=== PATIENT | female | born 2000 | race Caucasian/White ===

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

== ENCOUNTER 2019-01-11 00:20 | Emergency (ER) | payer OTHER ==
[~2019-01-11] VITALS: Ht 157.5 cm; Wt 68.0 kg
[2019-01-11 00:20] VITALS: BP 142/95
--- NOTE | 2019-01-11 00:20 | NUR ---
PT TRIAGED. IN [facility] ON BED DELAY.
--- NOTE | 2019-01-11 00:29 | NUR ---
AMBULATED FROM [facility] TO CHAIR Song
--- NOTE | 2019-01-11 00:29 | NUR ---
18 Y/O FEMALE BIB EMS WITH C/O ANXIETY. PT HAD AN ARGUMENT WITH FAMILY, PER EMS, FAMILY STATES SHE STARTED SHAKING AFTER THE ARGUMENT. PT STATES ANXIETY ONLY. THERE WAS NO POSTICAL PEROID. PT ALERT TO NAME, PLACE, TIME AND EVENT. VSS. SITTING IN CHAIR. NO C/O AT THIS TIME. PT RELAXED WITH CLEAR SPEECH. BILAT HAND AROMATHERAPIST STRONG. ER MD AWARE. CONTINUE TO MONITOR.
--- NOTE | 2019-01-11 00:34 | NUR ---
PT BEING EVALUATED AT CHAIR D BY DR HEALY.
[2019-01-11 01:20] VITALS: BP 133/65
--- NOTE | 2019-01-11 01:20 | NUR ---
DISCHARGE PAPERS GIVEN TO PT. NO C/O ANXIETY, ALERT TO NAME, PLACE, TIME, AND EVENT. INSTRUCTRUCTED TO F/U WITH PCP AND WHEN TO RETURN TO ER. PT VERBALLIZED UNDERSTANDING OF DC INSTRUCTIONS. ALL QUESTIONS ANSWERED.
== END 2019-01-11 01:20 | disposition home or self-care (01) ==
LOC: MED 00:20
DX: F41.0 Panic disorder [episodic paroxysmal anxiety] (principal); Z86.69 Personal history of other diseases of the nervous system and sense organs; Z79.899 Other long term (current) drug therapy
CPT/HCPCS: 99283

== ENCOUNTER 2019-03-26 00:27 | Emergency (ER) | payer OTHER ==
[~2019-03-26] VITALS: Ht 157.5 cm; Wt 68.0 kg
[2019-03-26 00:37] VITALS: BP 127/83
--- NOTE | 2019-03-26 00:41 | NUR ---
VSS. URINE CUP PROVIDED. SENT TO LOBBY.
--- NOTE | 2019-03-26 01:28 | NUR ---
18/F PRESENTED TO ED WITH C/O LUQ ABD PAIN RADIATING TO LLQ ABD. ABD SOFT NON TENDER. NORMOACTIVE BOWEL SOUNDS HEARD. PT STATES SHE IS HAVING CHILLS, AFEBRILE @ THIS TIME. +N -V +D. DENIES CP/SOB. VSS. CLEAR BILAT LUNG SOUNDS. NO COUGH PRESENT. EVEN UNLABORED BREATHING NOTED. NO SIGNS OF DISTRESS. PAIN 8/10 SHARP. HX: EPILEPSY, ASTHMA RX: KEPPRA, INHALER AX: AYSE LMP: 02/24/19
[2019-03-26] MEDS ORDERED: KETOROLAC 60 MG/2 ML VIAL IM ONE (01:30)
[2019-03-26 03:05] VITALS: BP 122/80
--- NOTE | 2019-03-26 03:05 | NUR ---
Patient discharged with v/s stable. Written and verbal after care instructions given and explained. Patient alert, oriented and verbalized understanding of instructions. Ambulatory with steady gait. All questions addressed prior to discharge. ID band removed. Patient advised to follow up with PMD. Rx of MOTRIN, ZOFRAN given. Patient educated on indication of medication including possible reaction and side effects. Opportunity to ask questions provided and answered.
== END 2019-03-26 03:05 | disposition home or self-care (01) ==
LOC: MED 00:27
DX: R19.7 Diarrhea, unspecified (principal); R10.12 Left upper quadrant pain; R11.0 Nausea; J45.909 Unspecified asthma, uncomplicated; Z79.899 Other long term (current) drug therapy
CPT/HCPCS: 81002; 81025; 96372; 99283; J1885

== ENCOUNTER 2019-05-02 23:40 | Emergency (ER) | payer OTHER ==
[~2019-05-02] VITALS: Ht 157.5 cm; Wt 68.0 kg
[2019-05-03 00:16] VITALS: BP 115/82
--- NOTE | 2019-05-03 00:16 | NUR ---
PT AMBULATED TO BED 09.
--- NOTE | 2019-05-03 00:34 | NUR ---
19 Y/O FEMALE PRESENTS TO ED, C/O N/V. PT STATES SYMPTOMS STARTED YESTERDAY, HAD MULTIPLE EPISODES OF VOMITING SINCE THEN. PT UNABLE TO TOLERATE FOOD. PT C/O OF ACHING ABDOMINAL PAIN 02/27, BS ACTIVE X4 QUADRANTS. PT 9 WEEKS PREGNAT, PER DOCTOR PT AT STABLE CONDITION. ERMD AWARE. WILL CONTINUE TO MONITOR.
[2019-05-03 00:35] LABS: BASOPHILS % (AUTO) 0.3 % (0.0-2.0); EOSINOPHILS % (AUTO) 0.4 % (0.0-4.0); HEMOGLOBIN 13.5 g/dL (12.0-16.0); LYMPHOCYTES # (AUTO) 1.8 K/uL (2.5-16.5); LYMPHOCYTES % (AUTO) 22.4 % (20.5-51.1); MEAN CORPUSCULAR HEMOGLOBIN 29 pg (27-31); MEAN CORPUSCULAR HGB CONC 33 g/dL (33-37); MEAN CORPUSCULAR VOLUME 86.6 fL (80-94); MONOCYTES # (AUTO) 0.5 K/uL (0.8-1.0); MONOCYTES % (AUTO) 6.5 % (1.7-9.3); NEUTROPHILS # (AUTO) 5.6 K/uL (1.8-7.7); NEUTROPHILS % (AUTO) 70.4 % (42.2-75.2); PLATELET COUNT (AUTO) 244 K/uL (140-450); RED BLOOD CELL COUNT(AUTO) 4.73 MIL/uL (4.20-5.40); RED CELL DISTRIBUTION WIDTH 13.3 % (11.6-13.7)
[2019-05-03 00:48] LABS: ANION GAP 14.7 (8-16); CARBON DIOXIDE 25.2 mmol/L (21-32); CREATININE 0.6 mg/dL (0.6-1.3); POTASSIUM 3.9 mmol/L (3.5-5.1)
[2019-05-03 01:14] LABS: APPEARANCE,URINE HAZY (CLEAR); BILIRUBIN,URINE 1+ (NEGATIVE); BLOOD, URINE TRACE-I (NEGATIVE); COLOR,URINE YELLOW (YELLOW); LEUKOCYTE ESTERASE ,URINE NEGATIVE (NEGATIVE); NITRITE, URINE NEGATIVE (NEGATIVE); PH,URINE 5.5 (5.0-9.0); UGLUCOSE NEGATIVE (NEGATIVE)
[2019-05-03 01:24] LABS: RBC,URINE 0-5 /HPF (0-5)
[2019-05-03 01:45] VITALS: BP 121/71
--- NOTE | 2019-05-03 01:45 | NUR ---
PT DISCHARGED WITH PAPERWORK. RX MACROBID. EDUCATED PT REGARDING MEDICATION AND S/E. EDUCATED PT REGARDING D/C DIAGNOSIS AND INSTRUCTIONS. PT VERBALIZED UNDERSTANDING OF TEACHING. TOLD PT TO FOLLOW UP WITH PCP AND WHEN TO RETURN TO ED. PT AT STABLE CONDITION. ALL QUESTIONS ANSWERED.
== END 2019-05-03 01:45 | disposition home or self-care (01) ==
LOC: MED 23:40
DX: O23.31 Infections of other parts of urinary tract in pregnancy, first trimester (principal); O99.511 Diseases of the respiratory system complicating pregnancy, first trimester; J45.909 Unspecified asthma, uncomplicated; Z3A.08 8 weeks gestation of pregnancy
CPT/HCPCS: 36415; 76801; 80048; 81001; 81025; 84702; 85025; 86900; 86901; 87086; 99284; Q0092

== ENCOUNTER 2019-05-23 20:07 | Inpatient (IN) | payer OTHER ==
[~2019-05-23] VITALS: Ht 157.5 cm; Wt 68.0 kg
--- NOTE | 2019-05-23 20:07 | NUR ---
PT TORI BLS TO ER BED 06
[2019-05-23 20:10] VITALS: BP 133/88
--- NOTE | 2019-05-23 20:41 | NUR ---
FATHER AT PT BEDSIDE
--- NOTE | 2019-05-23 20:45 | NUR ---
SUICIDE PRECAUTIONS IN PLACE. BELONGINGS REMOVED, ROOM SAFE. 1-1 SITTER IN ROOM. ASSESSMENT NOTE: BIBA WITH REPORTS OF SI AT HOME, PLACED ON 5150 HOLD BY PD MANAGER PORT. PATIENT STATES SHE WAS TAKING TO HER FATHER ABOUT HARD CHILDHOOD, WOULD NOT GIVE MORE DETAILS, AND IT MADE HER FEEL SUICIDAL, STATES SHE PLANNED TO CUT HER THROAT OR TAKE A LOT OF PILLS. STATES SHE HAS ATTEMPTED SUICIDE IN THE PAST BY CUTTING HER WRIST. STATES SHE HAS BEEN HAVING SOME SI FOR THE PAST WEEK BUT IT GOT WORSE TODAY. DENIES ANY MEDICAL SYMPTOMS. REPORTS BEING 13 WEEKS AT THIS TIME.
[2019-05-23 21:42] LABS: BASOPHILS % (AUTO) 0.2 % (0.0-2.0); EOSINOPHILS % (AUTO) 0.1 % (0.0-4.0); HEMATOCRIT 41.1 % (36-48); HEMOGLOBIN 13.5 g/dL (12.0-16.0); LYMPHOCYTES # (AUTO) 1.2 K/uL (2.5-16.5); LYMPHOCYTES % (AUTO) 10.8 % (20.5-51.1); MEAN CORPUSCULAR HEMOGLOBIN 29 pg (27-31); MEAN CORPUSCULAR HGB CONC 33 g/dL (33-37); MEAN CORPUSCULAR VOLUME 86.8 fL (80-94); MONOCYTES # (AUTO) 0.5 K/uL (0.8-1.0); MONOCYTES % (AUTO) 4.7 % (1.7-9.3); NEUTROPHILS # (AUTO) 9.4 K/uL (1.8-7.7); NEUTROPHILS % (AUTO) 84.2 % (42.2-75.2); PLATELET COUNT (AUTO) 241 K/uL (140-450); RED BLOOD CELL COUNT(AUTO) 4.74 MIL/uL (4.20-5.40); RED CELL DISTRIBUTION WIDTH 13.6 % (11.6-13.7); WHITE BLOOD COUNT (AUTO) 11.2 K/uL (4.5-11.0)
[2019-05-23 21:56] LABS: BARBITURATE, URINE NEG. ng/ml (NEG <=200); BENZODIAZEPINE, URINE NEG. ng/mL (NEG <=200); CANNABINOID, URINE NEG. ng/mL (NEG <=50); COCAINE, URINE NEG. ng/mL (NEG <=300); OPIATE, URINE NEG. ng/mL (NEG <=2000); PHENCYCLIDINE SCREEN,URINE NEG. ng/mL (NEG <=25)
[2019-05-23 21:57] LABS: ANION GAP 14.1 (8-16); CARBON DIOXIDE 25.1 mmol/L (21-32); CHLORIDE 105 mmol/L (98-107); CREATININE 0.5 mg/dL (0.6-1.3); GFR ARICAN-AMERICAN 202 mL/min (>90); GLUCOSE 88 mg/dL (74-106); POTASSIUM 4.2 mmol/L (3.5-5.1); SODIUM SERUM 140 mmol/L (136-145); UREA NITROGEN, BLOOD 5 mg/dL (7-18)
[2019-05-23 22:02] LABS: ALBUMIN 3.7 g/dL (3.4-5.0); ASPARTATE AMINOTRANSFERASE 15 U/L (15-37); TOTAL BILIRUBIN 0.7 mg/dL (0.0-1.0)
[2019-05-23 22:04] LABS: SALICYLATE < 2.8 mg/dL (2.8-20.0)
[2019-05-23 22:05] LABS: ACETAMINOPHEN < 0.5 ug/ml (10-30)
--- NOTE | 2019-05-23 22:30 | NUR ---
PATIENT HAS BEEN MEDICALLY CLEARED BY ERMD. AWAITING TELEPSYCH
--- NOTE | 2019-05-23 22:39 | NUR ---
SPOKE TO COUSIN TRINI CASEY. CONTACT INFORMATION IS [phone]. WOULD LIKE TO BE UPDATED WITH INFORMATION ON PT STATUS. PT GAVE CONSENT. ALVARO MADE AWARE.
--- NOTE | 2019-05-23 22:39 | NUR ---
PATIENT SITTING UP IN BED, SITTER AT BEDSIDE.
--- NOTE | 2019-05-23 23:00 | NUR ---
TELEPSYCH SPEAKING WITH PATIENT VIA MONITOR AT BEDSIDE.
--- NOTE | 2019-05-23 23:30 | NUR ---
PATIENT SITTING UP IN BED TALKING TO SITTER.
--- NOTE | 2019-05-24 00:45 | NUR ---
PATIENT SITTING UP IN BED, QUIET AND CALM. SITTER AT BEDSIDE.
--- NOTE | 2019-05-24 02:15 | NUR ---
PATIENT SITTING CALMLY IN BED, SITTER AT BEDSIDE. NO NEEDS STATED.
--- NOTE | 2019-05-24 03:19 | NUR ---
[place] [facility] [place] spoke with Justine and they do accept patients that are 13 weeks pregnany but require a full OBGYN work up. New referral was faxed for AM review and they will contact [facility] or [facility] if they need anymore test to be done. Called [facility] and spoke with Sirena, they do accept patients who are in their first trimester. New referral was faxed for morning review and will contact [facility] or [facility] if they can accommodate patient. [facility], spoke with López, no beds available a this time, requested if we can call back around 11AM to see if they have any pending discharges before sending over a packet for review. [facility], spoke with Janey, they can not accommodate the patient due to . [facility], spoke with Wil, no beds available at this time and they have a wait list. [facility], spoke with Lisa, no beds available at this time. [facility], spoke with Jah, no beds available at this time.
[2019-05-24 03:45] VITALS: BP 106/72
--- NOTE | 2019-05-24 03:45 | NUR ---
RECEIVED PT FROM ER NURSE, PT CAME IN WHEELCHAIR, ABLE TO AMBULATE TO [facility] BED. NO SOB OR ANY RESPIRATORY DISTRESS NOTED. IV SITE ON RAC, 22G, PATENT, INTACT, ASYMPTOMATIC. SKIN INTACT, WARM AND DRY TO TOUCH. DX: SUICIDAL IDEATION, ON 5150 HOLD, ORIENTED ROOM, BOARD UPDATED, VS CHECKED, MRSA SWAB DONE, BED IN LOW POSITION, 1:1 SITTER.
--- NOTE | 2019-05-24 03:48 | NUR ---
PATIENT TAKEN TO MED SURG ROOM 110-B VIA WHEELCHAIR. PATIENT STABLE DURING TRANSPORT. REPORT GIVEN TO RN.
--- NOTE | 2019-05-24 06:01 | NUR ---
PT SLEEPING IN BED. NO ACUTE DISTRESS NOTED.
--- NOTE | 2019-05-24 07:25 | NUR ---
RECEIVED BEDSIDE REPORT FROM NIGHTSHIFT NURSE. PT RESTING IN BED UPON ARRIVAL. ABLE TO MAKE NEEDS KNOWN. RESPIRATIONS EVEN AND UNLABORED WITH NO SOB OR RESPIRATORY DISTRESS. SKIN WARM AND DRY TO TOUCH. IV SITE IN LEFT FA 22G SALINE LOCK IS CLEAN, DRY, AND INTACT. 1:1 SITTER AT DOORWAY. SAFETY MEASURES IN PLACE. WILL CONTINUE TO MONITOR.
--- NOTE | 2019-05-24 07:32 | NUR ---
[facility] will continue to follow up for inpatient psych placement and keep documentation and nursing staff updated. Please contact the Behavioral Health Call Center if needed,
--- NOTE | 2019-05-24 07:35 | NUR ---
Per NOC shift documentation: Called [facility] and spoke with Justine and they do accept patients that are 13 weeks pregnany but require a full OBGYN work up. New referral was faxed for AM review and they will contact [facility] or [facility] if they need anymore test to be done. Called [facility] and spoke with Sirena, they do accept patients who are in their first trimester. New referral was faxed for morning review and will contact [facility] or [facility] if they can accommodate patient. [facility], spoke with Mehdi, no beds available a this time, requested if we can call back around 11AM to see if they have any pending discharges before sending over a packet for review. [facility], spoke with Janey, they can not accommodate the patient due to . [facility], spoke with Wil, no beds available at this time and they have a wait list. [facility], spoke with Lisa, no beds available at this time. [facility], spoke with Jah, no beds available at this time.
[2019-05-24 08:00] VITALS: BP 105/68
--- NOTE | 2019-05-24 08:44 | NUR ---
PATIENT HAS BEEN SCREENED AND CATEGORIZED LOW NUTRITION RISK. PATIENT WILL BE SEEN WITHIN 7 DAYS OF ADMISSION. 05/30/[address]
--- NOTE | 2019-05-24 09:30 | NUR ---
PT RESTING IN BED. ABLE TO MAKE NEEDS KNOWN. RESPIRATIONS EVEN AND UNLABORED WITH NO SOB OR RESPIRATORY DISTRESS. SKIN WARM AND DRY TO TOUCH. 1:1 SITTER AT BEDSIDE. SAFETY MEASURES IN PLACE. WILL CONTINUE TO MONITOR.
--- NOTE | 2019-05-24 09:42 | NUR ---
Received call Astrid calderon [facility], not able to accommodate patient due to [facility] not being contracted with their facility. S/W Jyoti from [facility], not able to accommodate patient. They can accommodate up to 12 weeks of . S/W Lolita from [facility], packet is on their transfer list for review. Gladis Christie s/w [facility]. Case by case basis. Fax packet for review
--- NOTE | 2019-05-24 09:56 | NUR ---
[facility], packet fax for review Addendum: 05/24/19 at 1425 by Meghann Garcia DC PLANNING 19 YRS OLD FEMALE PATIENT WAS ADMITTED FROM HOME WITH A DX OF SUCIDAL IDEATION. PT IS 13 WEEKS . PT HAS A HX OF DEPRESSION , SEIZURE AND ASTHMA. CONTINUED HER HOME MEDS FOR SZ AND ASTHMA . PT IS MEDICALLY STABLE. ORDERED PSYCH CONSULT WITH DR ALBERTO. DC PLAN TO TRANSFER TO PSYCH FACILITY. CM TO FOLLOW
[2019-05-24] MEDS ORDERED: ACETAMINOPHEN 325 MG TAB PO PRN (10:35)
[2019-05-24] MEDS ORDERED: ONDANSETRON 4 MG/2 ML VIAL IVP PRN (10:35)
--- NOTE | 2019-05-24 10:44 | NUR ---
HOURLY ROUNDING. PT RESTING IN BED. ABLE TO MAKE NEEDS KNOWN. RESPIRATIONS EVEN AND UNLABORED WITH NO SOB OR RESPIRATORY DISTRESS. SKIN WARM AND DRY TO TOUCH. 1:1 SITTER AT DOORWAY. SAFETY MEASURES IN PLACE. WILL CONTINUE TO MONITOR.
[2019-05-24] MEDS ORDERED: ALBUTEROL 0.083% 2.5 MG/3 ML NEBU INH PRN (10:45)
[2019-05-24] MEDS ORDERED: MULTIVITAMIN/MINERALS 1 TAB ONE (11:26)
[2019-05-24] MEDS: levETIRAcetam 500 MG TAB PO SCH ×2 (11:36→21:29)
[2019-05-24] MEDS: MULTIVIT/MIN/CA/FE/FA 1 TAB PO SCH (11:49)
--- NOTE | 2019-05-24 11:51 | NUR ---
ADMINISTERED MEDICATION PRESCRIBED PER MD ORDER. PT TOLERATED WELL. MEDICATION EDUCATION PERFORMED. PT VERBALIZED UNDERSTANDING. SAFETY MEASURES IN PLACE. WILL CONTINUE TO MONITOR
--- NOTE | 2019-05-24 13:50 | NUR ---
HOURLY ROUNDING. PT RESTING IN BED WITH FAMILY AT BEDSIDE. ABLE TO MAKE NEEDS KNOWN. RESPIRATIONS EVEN AND UNLABORED WITH NO SOB OR RESPIRATORY DISTRESS. SKIN WARM AND DRY TO TOUCH. 1:1 SITTER AT DOORWAY. SAFETY MEASURES IN PLACE. WILL CONTINUE TO MONITOR.
--- NOTE | 2019-05-24 15:15 | NUR ---
PT ASLEEP IN BED. RESPONSIVE TO VERBAL AND TACTILE STIMULI. ABLE TO MAKE NEEDS KNOWN. RESPIRATIONS EVEN AND UNLABORED WITH NO SOB OR RESPIRATORY DISTRESS. SKIN WARM AND DRY TO TOUCH. 1:1 SITTER AT DOORWAY. SAFETY MEASURES IN PLACE. WILL CONTINUE TO MONITOR.
--- NOTE | 2019-05-24 15:48 | NUR ---
There are still no beds at any of the contracted facilities. Will endorse to next shift for further placement
[2019-05-24 16:00] VITALS: BP 108/74
--- NOTE | 2019-05-24 16:25 | NUR ---
LEFT A MESSAGE TO DR. ALBERTO' CELL PHONE TO FOLLOW UP WITH THE [facility] CONSULT. AWAITING FOR CALL BACK.
--- NOTE | 2019-05-24 17:30 | NUR ---
HOURLY ROUNDING. HOURLY ROUNDING. PT RESTING IN BED WITH FAMILY AT BEDSIDE. ABLE TO MAKE NEEDS KNOWN. RESPIRATIONS EVEN AND UNLABORED WITH NO SOB OR RESPIRATORY DISTRESS. SKIN WARM AND DRY TO TOUCH. SAFETY MEASURES IN PLACE. WILL CONTINUE TO MONITOR.
--- NOTE | 2019-05-24 19:05 | NUR ---
ENDORSED TO NIGHTSHIFT NURSE. PT RESTING IN BED UPON ARRIVAL. ABLE TO MAKE NEEDS KNOWN. RESPIRATIONS EVEN AND UNLABORED WITH NO SOB OR RESPIRATORY DISTRESS. SKIN WARM AND DRY TO TOUCH. SAFETY MEASURES IN PLACE. PT IS STABLE.
--- NOTE | 2019-05-24 19:06 | NUR ---
RECD. RESTING IN BED, SLEEPING COMFORTABLY, EASILY WAKES UP WHEN NAME CALLED, RESPIRATION EVEN AND UNLABORED. IV SALINE LOCK AT THE LEFT FOREARM G22, PATENT AND INTACT. A/OX4, WHEN ASKED HOW SHE IS FEELING STATED, SHE IS FEELING A LITTLE BIT BETTER. PLAN OF CARE FOR THE SHIFT DISCUSSED. VERBALIZED UNDERSTANDING. DENIES PAIN 0/10. BOYFRIEND AT THE BEDSIDE.
--- NOTE | 2019-05-24 19:35 | NUR ---
Patient's Plan of Care was discussed and reviewed with ESTIMATOR LUMBER: RIKI
--- NOTE | 2019-05-24 20:15 | NUR ---
CRAVING FOR FRUIT IN CUP. RAIL SPECIALIST NADIRA BRING SOME FOR PATIENT.
--- NOTE | 2019-05-24 21:30 | NUR ---
INFORMED LABOR AND DELIVERY NURSE REGARDING MD ORDER OF HEART TONES BY DOPPLER, QUITE HARD TO MONITOR AT 13TH WEEKS, USUALLY AROUND 16TH WEEKS OF .
--- NOTE | 2019-05-24 21:45 | NUR ---
WANTS ULTRA SOUND OF HER ABDOMEN. WORRIED, WANTS TO KNOW IF HER BABY IS ALRIGHT, WILL INFORM MD.
[2019-05-25] VITALS: BP 107/70
--- NOTE | 2019-05-25 | NUR ---
SLEEPING COMFORTABLY IN BED.
--- NOTE | 2019-05-25 02:00 | NUR ---
SLEEPING IN BED, INQUIRED IF SHE NEEDS ANYTHING STATED "I'M OK".
--- NOTE | 2019-05-25 04:30 | NUR ---
OCCASIONALLY CHANGED POSITION IN BED. NO APPEARANCE OF DISCOMFORT NOTED 0/10.
--- NOTE | 2019-05-25 07:10 | NUR ---
RECEIVED BEDSIDE REPORT FROM NIGHTSHIFT NURSE. PT ASLEEP IN BED UPON ARRIVAL. RESPONSIVE TO VERBAL AND TACTILE STIMULI. SKIN WARM AND DRY TO TOUCH. RESPIRATIONS EVEN AND UNLABORED WITH NO SOB OR RESPIRATORY DISTRESS. IV SITE IN LEFT FA 22G IS CLEAN, DRY, AND INTACT. 1:1 SITTER AT DOORWAY. SAFETY MEASURES IN PLACE. WILL CONTINUE TO MONITOR.
[2019-05-25 08:00] VITALS: BP 101/64
--- NOTE | 2019-05-25 09:15 | NUR ---
PT RESTING IN BED WITH FAMILY AT BEDSIDE.. SKIN WARM AND DRY TO TOUCH. RESPIRATIONS EVEN AND UNLABORED WITH NO SOB OR RESPIRATORY DISTRESS. 1:1 SITTER AT DOORWAY. SAFETY MEASURES IN PLACE. PT IS AWARE OD DC TODAY AND WANTS TO LEAVE BEFORE LUNCH. WILL CONTINUE TO MONITOR.
[2019-05-25] MEDS ORDERED: PREN-380 PO (09:43)
[2019-05-25] MEDS ORDERED: KEP500 PO (09:43)
[2019-05-25] MEDS ORDERED: ALBU0.0912 IH (09:43)
[2019-05-25] MEDS: levETIRAcetam 500 MG TAB PO SCH (10:31)
[2019-05-25] MEDS: MULTIVIT/MIN/CA/FE/FA 1 TAB PO SCH (10:31)
--- NOTE | 2019-05-25 10:31 | NUR ---
ADMINISTERED MEDICATION PRESCRIBED PER MD ORDER. PT TOLERATED WELL. MEDICATION EDUCATION PERFORMED. PT VERBALIZED UNDERSTANDING. SAFETY MEASURES IN PLACE.
[2019-05-25 11:12] VITALS: BP 101/64
--- NOTE | 2019-05-25 11:40 | NUR ---
PT RESTING IN BED WITH FAMILY AT BEDSIDE. RESPONSIVE TO VERBAL AND TACTILE STIMULI. SKIN WARM AND DRY TO TOUCH. RESPIRATIONS EVEN AND UNLABORED WITH NO SOB OR RESPIRATORY DISTRESS. WENT OVER DISCHARGE PAPERS AND PT SIGNED APPROPRIATE FORMS. ID BAND AND INTACT IV CANNULA REMOVED. INSTRUCTED PT TO VISIT ED FOR ANY SIGNS OF DISTRESS. PT VERBALIZED UNDERSTANDING. PT GATHERED BELONGS AND ITEMS IN SAFE WERE GIVEN TO PATIENT. PT GOING HOME WITH GURWINDER. PT ESCORTED SAFELY TO PRIVATE VEHICLE. PT IS STABLE. Addendum: 05/25/19 at 1240 by Melanie Schroeder RN PRESCRIPTION GIVEN TO PT WELL MENTAL HEALTH RESOURCE PACKET. EXPLAINED PACKET TO PT. PT ABLE TO VERBALIZE UNDERSTANDING AND TEACH BACK.
--- NOTE | 2019-05-26 15:14 | NUR ---
PCP Appointment: WNEDY contacted Dr. Federico Red's office and spoke to Mally [phone]. WENDY made hospital follow up for 1500 on 05/30/2019 @ [facility]. [address] [place] [id number]. Patient was notified. No further needs identified.
== END 2019-05-25 11:40 | disposition home or self-care (01) | DRG 566 ==
LOC: MED 20:07 → MTU 05-24 03:33
PROVIDERS: ADMIT Internal Medicine; ATTEND Internal Medicine
DX: O99.341 Other mental disorders complicating pregnancy, first trimester (principal); R45.851 Suicidal ideations; G40.909 Epilepsy, unspecified, not intractable, without status epilepticus; F32.9 Major depressive disorder, single episode, unspecified; O99.351 Diseases of the nervous system complicating pregnancy, first trimester; O99.511 Diseases of the respiratory system complicating pregnancy, first trimester; J45.909 Unspecified asthma, uncomplicated; Z3A.13 13 weeks gestation of pregnancy; Z91.14 Patient's other noncompliance with medication regimen; Z91.5 Personal history of self-harm
CPT/HCPCS: 36415; 80053; 80305; 84702; 85025; 87081; 93005; 99285; G0480; G0482; J2405; J7030; J7060

== ENCOUNTER 2019-06-14 18:10 | Emergency (ER) | payer OTHER ==
[~2019-06-14] VITALS: Ht 162.6 cm; Wt 68.0 kg
[~2019-06-14 18:10] MED LIST changes: +KEP500 PO; -PAX10 PO; +PREN-380 PO
[2019-06-14 18:15] VITALS: BP 158/95
--- NOTE | 2019-06-14 18:26 | NUR ---
PT AMB TO BED 12
[2019-06-14] MEDS ORDERED: NACL 0.9% 1,000 ML IV ONE (18:30)
[2019-06-14] MEDS ORDERED: ACETAMINOPHEN EXTRA STRENGTH 500 MG TAB PO ONE (18:30)
[2019-06-14] MEDS ORDERED: ONDANSETRON 4 MG/2 ML VIAL IVP ONE (18:30)
--- NOTE | 2019-06-14 18:30 | NUR ---
19 y/o F presents to ER c/o abdominal pain to RLQ. Pain level 10/10, sharp pain radiating to back. Pt had vaginal bleeding x3 days ago. Denies vaginal discharge. Pt is 16 weeks . First . LMP 02/21/19. HOB elevated, bed in lowest position, bed rail up x1. Dr. Bello at bedside. Allergies: NKA Med hx: epilepsy
--- NOTE | 2019-06-14 18:30 | NUR ---
DR GIPSON EVALUATING PT AT BEDSIDE
--- NOTE | 2019-06-14 18:35 | NUR ---
Pt ambulated to restroom to provide urine sample
--- NOTE | 2019-06-14 19:15 | NUR ---
Transfer of care and report given to RIGO Malin
--- NOTE | 2019-06-14 19:17 | NUR ---
ULTRASOUND AT BEDSIDE
[2019-06-14] MEDS ORDERED: ACETAMINOPHEN 160 MG/5 ML UDC PO ONE (19:20)
[2019-06-14] MEDS ORDERED: ACETAMINOPHEN 650 MG/20.3 ML UDC PO ONE (19:20)
[2019-06-14 19:38] LABS: BASOPHILS % (AUTO) 0.5 % (0.0-2.0); EOSINOPHILS # (AUTO) 0.1 K/uL (0-0.4); EOSINOPHILS % (AUTO) 0.8 % (0.0-4.0); HEMATOCRIT 39.6 % (36-48); LYMPHOCYTES # (AUTO) 2.1 K/uL (2.5-16.5); LYMPHOCYTES % (AUTO) 23.9 % (20.5-51.1); MEAN CORPUSCULAR HEMOGLOBIN 29 pg (27-31); MEAN CORPUSCULAR HGB CONC 33 g/dL (33-37); MEAN CORPUSCULAR VOLUME 87.1 fL (80-94); MONOCYTES # (AUTO) 0.5 K/uL (0.8-1.0); NEUTROPHILS % (AUTO) 68.8 % (42.2-75.2); PLATELET COUNT (AUTO) 233 K/uL (140-450); RED BLOOD CELL COUNT(AUTO) 4.55 MIL/uL (4.20-5.40); RED CELL DISTRIBUTION WIDTH 13.5 % (11.6-13.7); WHITE BLOOD COUNT (AUTO) 8.7 K/uL (4.5-11.0)
[2019-06-14 19:54] LABS: ALBUMIN 3.4 g/dL (3.4-5.0); ANION GAP 14.6 (8-16); CARBON DIOXIDE 26.3 mmol/L (21-32); CREATININE 0.7 mg/dL (0.6-1.3); POTASSIUM 3.9 mmol/L (3.5-5.1); TOTAL BILIRUBIN 0.6 mg/dL (0.0-1.0)
--- NOTE | 2019-06-14 20:07 | NUR ---
PT DENIES NAUSEA AT THIS TIME. DENIES DECREASE IN PAIN. 12/[address] RAVI MADE AWARE
--- NOTE | 2019-06-14 20:39 | NUR ---
PT LAYING IN BED POSITIONED FOR COMFORT. VISIBLE RISE AND FALL OF THE CHEST. X1 SIDE RAIL RAISED. BOYFRIEND AT BEDSIDE. WILL CONTINUE TO MONITOR.
--- NOTE | 2019-06-14 21:38 | NUR ---
PT STATES DECREASE IN PAIN 2/10 ABD PAIN
--- NOTE | 2019-06-14 21:49 | NUR ---
Patient discharged with v/s stable. Written and verbal after care instructions given and explained. Patient alert, oriented and verbalized understanding of instructions. Ambulatory with steady gait. All questions addressed prior to discharge. ID band removed. Patient advised to follow up with PMD. Rx of GLYCERIN ADULT RECTAL SUPPOSITORY given. Patient educated on indication of medication including possible reaction and side effects. Opportunity to ask questions provided and answered.
== END 2019-06-14 21:49 | disposition home or self-care (01) ==
LOC: MED 18:10
DX: O99.612 Diseases of the digestive system complicating pregnancy, second trimester (principal); K59.00 Constipation, unspecified; O26.892 Other specified pregnancy related conditions, second trimester; R10.84 Generalized abdominal pain; O99.512 Diseases of the respiratory system complicating pregnancy, second trimester; J45.909 Unspecified asthma, uncomplicated; Z3A.16 16 weeks gestation of pregnancy; Z86.69 Personal history of other diseases of the nervous system and sense organs; Z79.899 Other long term (current) drug therapy; Z79.51 Long term (current) use of inhaled steroids
CPT/HCPCS: 36415; 76817; 80053; 84702; 85025; 86900; 86901; 96374; 99284; J2405; J7030; Q0092